=== PATIENT | female | born 1955 | race Caucasian/White ===

== ENCOUNTER → 2016-06-21 | Outpatient (CLI) | payer BC | LOC: FIMAGING 13:06 | DX: Z12.31 Encounter for screening mammogram for malignant neoplasm of breast (principal) | CPT/HCPCS: G0202 ==

== ENCOUNTER → 2017-06-16 | Outpatient (CLI) | payer BC | LOC: FIMAGING 14:00 | PROVIDERS: ATTEND Physical Medicine & Rehabilitation | DX: M54.2 Cervicalgia (principal); M51.24 Other intervertebral disc displacement, thoracic region; M48.02 Spinal stenosis, cervical region; G95.20 Unspecified cord compression; M50.30 Other cervical disc degeneration, unspecified cervical region; M25.78 Osteophyte, vertebrae; Z98.1 Arthrodesis status ==

== ENCOUNTER → 2017-06-20 | Outpatient (CLI) | payer BC | LOC: FIMAGING 13:57 | PROVIDERS: ATTEND Family Medicine | DX: N64.4 Mastodynia (principal) ==

== ENCOUNTER 2017-06-22 08:13 | Emergency (ER) | payer BC ==
[2017-06-22 08:21] VITALS: RESP 20
--- NOTE | 2017-06-22 08:29 | CPEKG ---
Heart Rate: 88 RR Interval: 682 P-R Interval: 160 QRSD Interval: 76 QT Interval: 392 QTC Interval: 475 P [place]: 42 QRS [place]: -17 T Wave [place]: 23 EKG Severity - BORDERLINE ECG - EKG Impression: SINUS RHYTHM Electronically Signed By: Richi Alatorre 22-Jun-2017 08:33:14
--- NOTE | 2017-06-22 08:31 | EDPHY ---
H & P Stated Complaint: fast heart rate starting last night Time Seen by Provider: 06/22/17 08:25 HPI/ROS: CHIEF COMPLAINT: Palpitations HISTORY OF PRESENT ILLNESS: The patient is to the ED for evaluation of palpitations. She reportedly developed the symptoms at night. She reports a sensation of a "strongly" beating heart. She reported normal blood pressure and heart rate the time of this. The patient currently asymptomatic. She did recently began a new medication for treatment of her Sjogren's syndrome. The patient did have a bit more wine the usual last night. She has a prior history of ablation for SVT. REVIEW OF SYSTEMS: A comprehensive 10 point review of systems is otherwise negative aside from elements mentioned in the history of present illness. Source: Patient Exam Limitations: No limitations - Personal History Current Tetanus/Diphtheria Vaccine: Yes Current Tetanus Diphtheria and Acellular Pertussis (TDAP): Yes Tetanus Vaccine Date: 2010 - Medical/Surgical History Hx Asthma: No Hx Chronic Respiratory Disease: No Hx Diabetes: No Hx Cardiac Disease: Yes Hx Renal Disease: No Hx Cirrhosis: No Hx Alcoholism: No Hx HIV/AIDS: No Hx Splenectomy or Spleen Trauma: No Other PMH: SVT, hyperlipidemia, s/p lap tommy, neck fusion surgery, sjogren's syndrome - Social History Smoking Status: Never smoked - Physical Exam Exam: General Appearance: Alert, no distress Eyes: Pupils equal and round no pallor or injection ENT, Mouth: Mucous membranes moist Respiratory: There are no retractions, lungs are clear to auscultation Cardiovascular: Regular rate and rhythm Gastrointestinal: Abdomen is soft and nontender, no masses, bowel sounds normal Neurological: A&O, normal motor function, normal sensory exam, normal cranial nerves Skin: Warm and dry, no rashes Musculoskeletal: Neck is supple nontender Extremities: symmetrical, full range of motion Constitutional: Initial Vital Signs Temperature (C) 36.6 C 06/22/17 08:18 Heart Rate 104 H 06/22/17 08:18 Respiratory Rate 20 06/22/17 08:18 Blood Pressure 119/88 H 06/22/17 08:18 O2 Sat (%) 99 06/22/17 08:18 O2 Delivery Mode Room Air Allergies/Adverse Reactions: No Known Allergies Allergy (Verified 06/22/17 08:16) Home Medications: Medication Instructions Recorded Cholecalciferol Vit D3 [Vitamin D3 4,000 units PO DAILY 08/23/15 2000 units] Diclofenac Sodium [Voltaren 75 MG 75 mg PO DAILY 08/23/15 (*)] Herbals/Supplements -Info Only 1 ea PO DAILY 08/23/15 Magnesium Oxide [Magnesium Oxide 400 mg PO DAILY 08/23/15 400 mg (*)] Simvastatin [Zocor] 20 mg PO HS 08/23/15 Evoxac 06/22/17 Medical Decision Making - Diagnostics EKG Interpretation: EKG: Complete interpretation has been separately recorded in the [employer] archive. Summary impression: Sinus rhythm, rate 88, no ST segment elevation noted. No arrhythmia present ED Course/Re-evaluation: The patient was placed on a threat monitoring analyst. There is no evidence of an obvious arrhythmia. The patient has no symptoms suggestive of PE or acute coronary syndrome. The patient's electrolytes are within normal limits. The patient is comfortable being discharged home this point. She has been advised to return to the ED for any recurrent symptoms of palpitations, tachycardia, shortness of breath, presyncope or other concerns. It is certainly possible she experienced some palpitations in the setting her medications and alcohol use yesterday. Differential Diagnosis: Differential diagnosis considered includes SVT, atrial fibrillation, PVCs, dehydration, metabolic abnormality, medication side effect - Data Points Laboratory Results: Laboratory Results 06/22/17 08:35 06/22/17 08:35 06/22/17 06/22/17 08:35 08:35 WBC 11.12 10^3/uL H 10^3/uL (3.80-9.50) RBC 5.02 10^6/uL 10^6/uL (4.18-5.33) Hgb 15.5 g/dL g/dL (12.6-16.3) Hct 45.7 % % (38.0-47.0) MCV 91.0 fL fL (81.5-99.8) MCH 30.9 pg pg (27.9-34.1) MCHC 33.9 g/dL g/dL (32.4-36.7) RDW 13.2 % % (11.5-15.2) Plt Count 252 10^3/uL 10^3/uL (150-400) MPV 9.8 fL fL (8.7-11.7) Neut % (Auto) 77.1 % H % (39.3-74.2) Lymph % (Auto) 16.1 % % (15.0-45.0) [place] % (Auto) 5.1 % % (4.5-13.0) Eos % (Auto) 1.0 % % (0.6-7.6) Baso % (Auto) 0.4 % % (0.3-1.7) Nucleat RBC Rel Count 0.0 % % (0.0-0.2) Absolute Neuts (auto) 8.58 10^3/uL H 10^3/uL (1.70-6.50) Absolute Lymphs (auto) 1.79 10^3/uL 10^3/uL (1.00-3.00) Absolute Monos (auto) 0.57 10^3/uL 10^3/uL (0.30-0.80) Absolute Eos (auto) 0.11 10^3/uL 10^3/uL (0.03-0.40) Absolute Basos (auto) 0.04 10^3/uL 10^3/uL (0.02-0.10) Absolute Nucleated RBC 0.00 10^3/uL 10^3/uL (0-0.01) Immature Gran % 0.3 % % (0.0-1.1) Immature Gran # 0.03 10^3/uL 10^3/uL (0.00-0.10) Sodium 142 mEq/L mEq/L (135-145) Potassium 5.3 mEq/L H mEq/L (3.5-5.2) Chloride 108 mEq/L mEq/L (97-110) Carbon Dioxide 20 mEq/l L mEq/l (22-31) Anion Gap 14 mEq/L mEq/L (8-16) BUN 15 mg/dL mg/dL (7-23) Creatinine 0.6 mg/dL mg/dL (0.6-1.0) Estimated GFR > 60 Glucose 85 mg/dL mg/dL (70-100) Calcium 8.6 mg/dL mg/dL (8.5-10.4) Troponin I < 0.012 ng/mL ng/mL (0.000-0.034) Specimen Hemolysis 203 Departure - Departure Disposition: Home, Routine, Self-Care Clinical Impression: Palpitations Condition: Good Instructions: Heart Palpitations (DC) Additional Instructions: 1. Please return to the emergency department for markedly worsening symptoms or other concerns. 2. Please follow up with your regular Cardiology as needed. Referrals: Cristine Mckeon MD [Primary Care Provider] - As per Instructions
[2017-06-22 08:45] LABS: PLATELET COUNT 252 10^3/uL (150-400)
[2017-06-22 09:42] VITALS: BP 115/86; PULSE 92; TEMP 97.2; O2SAT 92
== END 2017-06-22 09:45 | disposition home or self-care (01) ==
DX: R00.2 Palpitations (principal)

== ENCOUNTER → 2017-07-02 | Outpatient (CLI) | payer BC | LOC: FIMAGING 07:47 | PROVIDERS: ATTEND Physical Medicine & Rehabilitation | DX: M51.24 Other intervertebral disc displacement, thoracic region (principal); M48.04 Spinal stenosis, thoracic region ==

== ENCOUNTER → 2018-07-28 | Outpatient (CLI) | payer OTHER | LOC: FIMAGING 10:15 | PROVIDERS: ATTEND Family Medicine | DX: Z12.31 Encounter for screening mammogram for malignant neoplasm of breast (principal) ==